=== PATIENT | male | born 1985 | race Two or more races ===

== ENCOUNTER 2017-02-09 08:25 | Emergency (ER) | payer OTHER ==
[2017-02-09 08:36] VITALS: BP 130/89; PULSE 66; RESP 16; TEMP 97.7; O2SAT 98
--- NOTE | 2017-02-09 09:20 | UCPHY ---
H & P Time Seen by Provider: 02/09/17 09:13 Patient Type: New HPI/ROS: This patient has a 3 day history of sore throat. He describes onset of URI symptoms 3 days ago with coryza in sneezing. He noticed onset of laryngeal pain when he stifled a vigorous sneeze 2 days ago with persistent laryngeal ache since that time of moderate intensity. He has associated mild odynophagia with no other exacerbating factors noted. ROS: No high fevers or chills. He has mild hoarseness to his voice compared to baseline but still able to talk. No sinus pain. No ear symptoms. Pulmonary: No significant cough or shortness of breath. 5 point ROS is otherwise negative. Past Medical/Surgical History: o/w wnl Smoking Status: Never smoked Physical Exam: Physical Exam Vital signs are normal. General: No acute distress HEENT: Nose: Clear discharge bilaterally. No sinus tenderness to percussion. Ears: External canals and tympanic membranes are clear with no erythema or abnormal findings bilaterally. Oropharynx: No erythema or exudates. Minimal hoarseness to the voice. No drooling or stridor. Eyes: Pupils equal and react to light. Extraocular motions are intact. Neck: Supple with no meningismus. No significant lymphadenopathy. Minimal anterior laryngeal tenderness without swelling or ecchymosis externally. Lungs: Clear to auscultation bilaterally with no rales, rhonchi or wheeze. No respiratory distress. Cardiac: Regular rate and rhythm with no murmur gallop or rub Skin: No rash or pallor. Neuro: Alert with no focal deficits noted. Initial differential diagnosis: Viral laryngitis versus mechanical laryngeal injury, strep pharyngitis versus viral pharyngitis Constitutional: Initial Vital Signs Temperature (C) 36.5 C 02/09/17 08:35 Heart Rate 66 02/09/17 08:35 Respiratory Rate 16 02/09/17 08:35 Blood Pressure 130/89 H 02/09/17 08:35 O2 Sat (%) 98 02/09/17 08:35 O2 Delivery Mode Room Air Allergies/Adverse Reactions: No Known Allergies Allergy (Unverified 02/09/17 08:34) Home Medications: Medication Instructions Recorded Fluticasone Hfa 220 Mcg [Flovent 2 puffs IH BID #1 mdi 02/09/17 220 MCG Hfa MDI (*)] Medical Decision Making ED Course/Re-evaluation: Rapid strep is negative. I counseled patient regarding laryngitis regarding minor laryngeal injury. Encouraged not to stifle sneezes. He will use Flovent steroid inhaler and ibuprofen for symptoms and follow up with ENT if he is not improving. - Data Points Laboratory Results: 02/09/17 02/09/17 Unknown 08:38 Group A Strep Screen NEGATIVE (NEGATIVE) Group A Strep DNA Pending Departure - Departure Disposition: Home, Routine, Self-Care Clinical Impression: Laryngitis Condition: Good Instructions: Laryngitis (ED) Additional Instructions: Diagnosis: Laryngitis Your rapid strep test is negative Plan: Humidifier Continue ibuprofen Add Tylenol in addition Flovent steroid inhaler Return for any significant worsening despite treatment plan. Referrals: NONE *PRIMARY CARE P,. [Primary Care Provider] - As per Instructions Prescriptions: Fluticasone Hfa 220 Mcg [Flovent 220 MCG Hfa MDI (*)] 2 puffs IH BID #1 mdi - PQRS PQRS Measurement: NA
== END 2017-02-09 09:36 | disposition home or self-care (01) ==
LOC: CED 08:25
DX: J04.0 Acute laryngitis (principal)
CPT/HCPCS: 87880-PO; 99203-PO; G0463-PO